=== PATIENT | female | born 2005 | race Caucasian/White ===

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

== ENCOUNTER → 2025-04-22 | Outpatient (CLI) | payer OTHER, SELFPAY ==
--- OUTSIDE RECORDS SUMMARY | 2025-04-22 14:55 | XMS RPT_ITS | CCD ---
Author Organization [facility] Care Team Providers Care Bus Matron Name Role Phone Osiris Raymond MD Primary Care Provider OSIRIS RAYMOND Primary Care Unavailable OSIRIS RAYMOND Attending Unavailable OSIRIS RAYMOND Primary Care Unavailable Cathy Mcrae Attending Unavailable Osiris Raymond Referring Unavailable Osiris Raymond Primary Care Unavailable Medications Current Medications Medication Drug Class(es) Dates Sig (Normalized) Sig (Original) cyclobenzaprine hydrochloride 10 mg oral tablet (4 sources) Muscle Relaxant Start: 08-29-2021 End: 09-03-2021 take 1 tablet by mouth twice daily cyclobenzaprine (FLEXERIL) 10 mg tablet Take 1 tablet by mouth twice daily for 5 days. 10 tablet 0 08/29/2021 09/03/2021 Active Start: 08-22-2021 End: 08-27-2021 take 1 tablet by mouth twice daily cyclobenzaprine (FLEXERIL) 5 mg tablet Take 1 tablet by mouth twice daily for 5 days. 10 tablet 0 08/22/2021 08/27/2021 Active Comment on above: Take 1 tablet by sean th twice daily for 5 days. Completed/Discontinued Medications Medication Drug Class(es) Dates Sig (Normalized) Sig (Original) drospirenone / Ethinyl Estradiol (11 sources) Progestin, Estrogen Start: 12-15-2020 VESTURA, 28, 3-0.02 mg per tablet naproxen 25 mg/ml oral suspension (3 sources) Nonsteroidal Anti-inflammatory Drug Start: 08-22-2021 End: 09-05-2021 take 20 mL by mouth twice daily naproxen (NAPROSYN) 125 mg/5 mL suspension Take 20 mL by mouth twice daily for 14 days. 560 mL 0 08/22/2021 08/29/2021 Discontinued Comment on above: Take 20 mL by mouth twice daily for 14 days. Problems Active Problems Problem Classification Problem Date Documented Da te Episodic/Chronic Blindness and vision defects (1 source) Eye / vision finding; Translations: [Unspecified visual disturbance] Episodic Other screening for suspected conditions (not mental disorders or infectious disease) (1 source) Patient encounter status; Translations: [Encounter for screening for diabetes mellitus] Episodic Spondylosis; intervertebral disc disorders; other back problems (14 sources) Chronic pain; Translations: [Cervicalgia] Onset: 09-03-2021 Episodic Past or Other Problems Problem Classification Problem Date Documented Da te Episodic/Chronic Other non-traumatic joint disorders (11 sources) Patellar instability; 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 Subjective Dipak Durand is a 17 year old female. HPI Presents with left eye redness watering and itchiness over the past 2 days. She had slept with her contacts the night before symptoms started. She got the contact out but her eyes been bothering her since. She also has glasses but did not wear them today. She was unable to do the eye exam due to not having her glasses. No cough or cold symptoms. No fever. No ear pain. No trouble seeing. Denies any thick drainage or crusting. Review of Systems Constitutional: Negative. HENT: Negative. Eyes: Positive for photophobia, pain, discharge, redness and itching. Negative for visual disturbance. Respiratory: Negative. Cardiovascular: Negative. Gastrointestinal: Negative. Genitourinary: Negative. Musculoskeletal: Negative. All other systems reviewed and are negative. PAST MEDICAL HISTORY Diagnosis Date Buckle fracture of ulna, right 09/2014 Childhood overweight, BMI 85-94.9 percentile 04/07/2015 PMH - PAST MEDICAL HISTORY OF 12/26/09 Normal Color Vision Current Outpatient Medications Medication Sig Dispense Refill VESTURA, 28, 3-0.02 mg per tablet ofloxacin (OCUFLOX) 0.3 % ophthalmic solution Use 2 Drops in the left eye every 4 hours for 7 days. 5 mL 0 No current facility-administered medications for this visit. PAST SURGICAL HISTORY Procedure Laterality Date NONE FAMILY HISTORY Problem Relation Age of Onset Cancer Paternal Grandfather tumor on back other (gastro) Maternal Grandfather Hypertension Maternal Grandmother other (murmur) Maternal Aunt dx as child Social History Tobacco Use Smoking status: Never Smokeless tobacco: Never Objective BP 96/60 Pulse 80 Temp 36.9 ?C (98.4 ?F) Resp 18 Wt 64.4 kg (142 lb) LMP 03/31/2023 (Approximate) SpO2 98% Physical Exam Vitals reviewed. Constitutional: Appearance: Normal appearance. HENT: Head: Normocephalic and atraumatic. Nose: Nose normal. Mouth/Throat: Mouth: Mucous membranes are moist. Pharynx: Oropharynx is clear. Eyes: General: Lids are normal. Extraocular Movements: Extraocular movements intact. Comments: Patient has some erythema of the conjunctive of the left eye with injection of the sclera. Some tearing noted. She is PERRLA and EOMI. No sign of orbital or periorbital cellulitis. After fluorescein and tetracaine, no sign of foreign body or abrasion on exam. Skin: General: Skin is warm and dry. Findings: No rash. Neurological: Mental Status: She is alert. Assessment and Plan ASSESSMENT/PLAN: 1. Acute conjunctivitis of left eye, unspecified acute conjunctivitis type - ICD9: 372.00, ICD10: H10.32 - see medication orders - course and contagiousness issues discussed, including hand washing. - Instructed to follow up with pcp if not better in 1-2 days RAUL Sadler-C Allergies As of Date: 05/08/2023 (No Known Allergies) Date Reviewed: 05/08/2023 Reviewed by: Harriett Sullivan LPN - Fully Assessed Reason for Visit: Eye Problem [43] Cmt: Left eye red, watering, itchy, fell asleep with contact in and woke up with it, x 2 days Primary Visit Diagnosis:Acute conjunctivitis of left eye, unspecified acute conjunctivitis type [H10.32] Order(s):ofloxacin (OCUFLOX) 0.3 % ophthalmic solutionUse 2 Drops in the left eye every 4 hours for 7 days.Disp: 5 mLRfl: 0 Prescriptions as of 05/08/2023 - ofloxacin (OCUFLOX) 0.3 % ophthalmic solution Use 2 Drops in the left eye every 4 hours for 7 days. 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 Letter Text Encounter Status:Closed by ARIELA HERNANDEZ on 05/08/23 [facility] CNOVon 05-28-2022 CNOV Office Visit (PEDSWS ) DIPAK DURAND ([id number]) 3 F Date Time Provider Department 05/28/22 8:00 AM OSIRIS RAYMOND [facility] During your visit today, we recorded the following information about you: Temperature Pulse Respiration Blood pressure 97.3 degrees 84/minute 18/minute 102/60 Weight Last Period 75.5 kg 05/14/22 Osiris Raymond MD 05/28/2022 9:02 AM Signed Chief complaint - seen the eye doctor on Friday (Vision improved a great deal, the eye doctor was concerned about diabetes) SUBJECTIVE: Dipak Durand 16 year old FEMALE accompanied by father for evaluation of concern about diabetes. Patient was seen for routine eye exam by Dr. Elliot Rico a couple of weeks ago. She had a dilated eye exam at that time. She had significant improvement in her vision and he mentioned a concern that she could have diabetes because of this improvement. Patient denies weight loss, abdominal pain, polyuria polydipsia or polyphagia. Denies all other review of symptoms. No other visual changes, no blurry vision, no eye pain. No family history of diabetes. OBJECTIVE: BP 102/60 Pulse 84 Temp 36.3 ?C (97.3 ?F) (Temporal) Resp 18 Wt 75.5 kg (166 lb 6 oz) LMP 05/14/2022 General: alert and active in no apparent distress Eyes: conjunctiva clear, PERRL, EOMI Lungs: clear to auscultation bilaterally, good air exchange, no retractions CVS: Normal rate, regular rhythm, no murmur Skin: No rashes, lesions or skin changes ASSESSMENT/PLAN: ASSESSMENT/PLAN: 1. Change in vision - ICD9: 368.9, ICD10: H53.9 (primary diagnosis) Follow-up with eye doctor as needed. Follow-up with me at 17-year well-child check. 2. Screening for diabetes mellitus - ICD9: V77.1, ICD10: Z13.1 - URINE OB DIP B/O Urine dip is clear for glucose or ketones. Some blood in the dip but she is currently on menses. No evidence for diabetes at this time. Osiris Raymond MD Allergies As of Date: 05/28/2022 (No Known Allergies) Date Reviewed: 05/28/2022 Reviewed by: Violette Pena Ma - Fully Assessed Reason for Visit: seen the eye doctor on Friday [Other] Cmt: Vision improved a great deal, the eye doctor was concerned about diabetes Primary Visit Diagnosis:Change in vision [H53.9] Other Visit Diagnosis:Screening for diabetes mellitus [Z13.1] Order(s):URINE OB DIP B/O [2200026] Order #: [id number] UA DIP, URINE (POC) [[id number]] Order #: [id number]. 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 Follow-up and Disposition History for Encounter Date Provider Department Center 05/28/2022 [id number] RAYMOND [facility] Encounter Status:Closed by OSIRIS RYAMOND on 05/28/22 Normal [facility] UA DIP, URINE (POC)on 2022 BILIRUBIN UA (POCT) Negative Negative [facility] CLARITY UA (POCT) Slightly Cloudy Cl [facility] COLOR UA (POCT) Other [facility] GLUCOSE UA (POCT) Negative Negative mg/dL [facility] HEMOGLOBIN/BLOOD UA (POCT) Moderate Abnormal Negative [facility] KETONE UA (POCT) Negative Negative mg/dL [facility] LEUKOCYTES UA (POCT) Negative Negative [facility] NITRITE UA (POCT) Negative Negative [facility] PH UA (POCT) 6.0 4.5 - 8.0 [facility] Protein Ql (U) 30 mg/dL Abnormal Negative mg/dL [facility] SPECIFIC GRAVITY UA (POCT) 1.025 1.005 - 1.030 [facility] UROBILINOGEN UA (POCT) 0.2 E.U./dL Normal E.U./dL [facility] PROGRESSon 11-02-2018 Protein mass conc HNO ID: [id number] Author: Nini Cho) ANIBAL Begum Service: ? Author Type: Clinical Main Line Assembler Type: Progress Notes Filed: 11/02/2018 2:40 PM Note Text: NAME:Dipak Durand DATE: November 02, 2018 CCF#: [id number] Lower Extremity X-Ray(s): Knee, AP / Lat / Tunne / Merchant Bilateral and Wt. Bearing COMPLETED TECH ID SIGN: PABLO BURTON [facility] XR KNEE 4V AP/PA/LAT/MERCH B Gertrudis 11-02-2018 XR KNEE 4V AP/PA/LAT/MERCH NELA * * *Final Report* * * DATE OF EXAM: Nov 02 2018 2:39PM EMY [id number] - XR KNEE 4V AP/PA/LAT/MERCH NELA / PROCEDURE REASON: [id number] * * * * Physician Interpretation * * * * Knee radiographs HISTORY: 13 years old Clinical information: Pain BILATERAL KNEE PAIN TECHNIQUE: Images: XR KNEE 4V AP/PA/LAT/MERCH NELA Comparison: None. RESULT: Findings: LEFT KNEE: No acute fracture, dislocation, aggressive osseous lesion, or radiopaque foreign body identified. RIGHT KNEE: No acute fracture, dislocation, aggressive osseous lesion, or radiopaque foreign body identified. IMPRESSION: No acute osseous abnormality identified.. Rda: PSCB Transcribe Date/Time: Nov 02 2018 3:26P Dictated by : VICENTE PATINO MD This examination was interpreted and the report reviewed and electronically signed by: VICENTE PATINO MD on Nov 02 2018 3:27PM EST [id number] [facility] Vital Signs Date Time Vital Sign Value Performing Clinician Lucita castaneda 05-28-2022 08:01-0500 Body temperature 97.3 [degF] Osiris Raymond MD Work Phone: [facility] 05-28-2022 08:01-0500 Body weight 75.47 kg Osiris Raymond MD Work Phone: [facility] 05-28-2022 08:01-0500 Diastolic blood pressure 60 mm[Hg] Osiris Raymond MD Work Phone: [facility] 05-28-2022 08:01-0500 Heart rate 84 /min Osiris Raymond MD Work Phone: [facility] 05-28-2022 08:01-0500 Respiratory rate 18 /min Osiris Raymond MD Work Phone: [facility] 05-28-2022 08:01-0500 Systolic blood pressure 102 mm[Hg] Osiris Raymond MD Work Phone: [facility] 08-29-2021 19:22-0400 Body temperature 97.5 [degF] Osiris Raymond MD Work Phone: [facility] 08-29-2021 19:22-0400 Body weight 79.55 kg Osiris Raymond MD Work Phone: [facility] 08-29-2021 19:22-0400 Diastolic blood pressure 60 mm[Hg] Osiris Raymond MD Work Phone: [facility] 08-29-2021 19:22-0400 Heart rate 82 /min Osiris Raymond MD Work Phone: [facility] 08-29-2021 19:22-0400 Respiratory rate 16 /min Osiris Raymond MD Work Phone: [facility] 08-29-2021 19:22-0400 Systolic blood pressure 100 mm[Hg] Osiris Raymond MD Work Phone: [facility] Encounters Encounter Date Encounter Type Care Provider Facility Start: 05-12-2023 ambulatory Cathy Mcrae Facility :[facility] Start: 05-08-2023 End: 05-08-2023 ambulatory OSIRIS RAYMOND Facility:[facility] Start: 05-28-2022 End: 05-28-2022 ambulatory OSIRIS RAYMOND Facility:[facility] Start: 05-28-2022 End: 05-28-2022 Patient encounter procedure Osiris Raymond MD Work Phone: [facility] Comment on above: Change in vision (Pr imary Dx); Screening for diabetes mellitus Start: 10-08-2021 End: 10-08-2021 ambulatory Rossana Liz PT Work Phone: [facility] Comment on above: Chronic bilateral lo w back pain without sciatica (Primary Dx) Start: 10-01-2021 End: 10-01-2021 ambulatory Jannet Chacko KERFER MACHINE OPERATOR Work Phone: [facility] Comment on above: Chronic bilateral lo w back pain without sciatica (Primary Dx) Start: 09-26-2021 End: 09-26-2021 ambulatory Jannet Chacko KERFER MACHINE OPERATOR Work Phone: [facility] Comment on above: Chronic bilateral lo w back pain without sciatica (Primary Dx) Start: 09-20-2021 End: 09-20-2021 ambulatory Rossana Liz PT Work Phone: [facility] Comment on above: Chronic bilateral lo w back pain without sciatica (Primary Dx) Start: 09-18-2021 End: 09-18-2021 ambulatory Rossana Liz PT Work Phone: [facility] Comment on above: Chronic bilateral lo w back pain without sciatica (Primary Dx) Start: 09-12-2021 End: 09-12-2021 ambulatory Jannet Chacko KERFER MACHINE OPERATOR Work Phone: [facility] Comment on above: Chronic bilateral lo w back pain without sciatica (Primary Dx) Start: 09-03-2021 End: 09-03-2021 ambulatory Rossana Liz PT Work Phone: [facility] Comment on above: Chronic bilateral lo w back pain without sciatica (Primary Dx) Start: 08-29-2021 End: 08-29-2021 Patient encounter procedure Osiris Raymond MD Work Phone: [facility] Comment on above: Chronic neck and jagjit k pain (Primary Dx) Start: 08-24-2021 ambulatory Osiris Raymond MD Work Phone: [facility] Comment on above: Excused work absence request Start: 08-23-2021 ambulatory Osiris Raymond MD Work Phone: [facility] Comment on above: Another medication q uestion Procedures Date Procedure Procedure Detail Performing Clinician Start: 05-28-2022 Urnls dip stick/tabl et rgnt auto w/o microscopy Osiris Raymond MD Work Phone: Start: 01-17-2021 Adult depression screening assessment Osiris Raymond MD Work Phone: Plan of Treatment Date Care Activity Detail Author Start: 06-19-2026 Urine microalbumin profile DTAP,TDAP,TD (7 - Td or Tdap) [facility] Start: 01-24-2022 Influenza vaccination C [facility] Start: 01-17-2022 Adult depression screening assessment DEPRESSION SCREENING [facility] Start: 08-20-2021 COVID-19 VACCINE (4 - Booster for Pfizer series) COVID-19 VACCINE (4 - Booster for Pfizer series) [facility] Start: 10-28-2019 CHLAMYDIA SCREENING (<18) CHLAMYDIA SCREENING (<18) [facility] Start: 10-28-2019 GC (GONORRHEA) SCREE RYANNE (<18) GC (GONORRHEA) SCREENING (<18) [facility] Start: 2018 PEDS TO ADULT TRANSI TION ANNUAL ASSESSMENT PEDS TO ADULT TRANSITION ANNUAL ASSESSMENT [facility] Start: 2014 MENINGOCOCCAL B: Consider based on risk (1 of 2 - Risk Bexsero 2-dose series) MENINGOCOCCAL B: Consider based on risk (1 of 2 - Risk Bexsero 2-dose series) [facility] URINE OB DIP B/O URINE OB DIP B/ O Lab Routine Screening for diabetes mellitus Ordered: 05/28/2022 [facility] Work Phone: Comment on above: Ordered: 05/28/2022 [facility] Immunizations Immunization Date Immunization Notes Care Provider [facility] 08-22-2021 meningococcal polysaccharide (groups A, C, Y and W-135) diphtheria toxoid conjugate vaccine (MCV4P) Osiris Raymond MD Work Phone: [facility] 12-25-2017 Human Papillomavirus 9-valent vaccine Osiris Raymond MD Work Phone: [facility] 02-18-2017 Influenza, injectabl e, Madin Miranda Canine Kidney, preservative free, quadrivalent Osiris Raymond MD Work Phone: [facility] 06-19-2016 Human Papillomavirus 9-valent vaccine Osiris Raymond MD Work Phone: [facility] Work Phone: 06-19-2016 meningococcal polysaccharide (groups A, C, Y and W-135) diphtheria toxoid conjugate vaccine (MCV4P) Osiris Raymond MD Work Phone: [facility] Work Phone: 06-19-2016 tetanus toxoid, redu azam diphtheria toxoid, and acellular pertussis vaccine, adsorbed Osiris Raymond MD Work Phone: [facility] Work Phone: 04-07-2015 influenza, injectabl e, quadrivalent, preservative free Osiris Raymond MD Work Phone: [facility] 03-15-2014 influenza, live, intranasal, quadrivalent Osiris Raymond MD Work Phone: [facility] 03-12-2013 influenza virus vacc ine, live, attenuated, for intranasal use Osiris Raymond MD Work Phone: [facility] 03-03-2012 influenza virus vacc ine, live, attenuated, for intranasal use Osiris Raymond MD Work Phone: [facility] Work Phone: 12-26-2009 diphtheria, tetanus toxoids and acellular pertussis vaccine Osiris Raymond MD Work Phone: [facility] 12-26-2009 hepatitis A vaccine, unspecified formulation Osiris Raymond MD Work Phone: [facility] 12-26-2009 measles, mumps and rubella virus vaccine Osiris Raymond MD Work Phone: [facility] 12-26-2009 poliovirus vaccine, inactivated Osiris Raymond MD Work Phone: [facility] 12-26-2009 varicella virus vaccine Osiris Raymond MD Work Phone: [facility] 03-29-2009 novel Influenza-H1N1 -09, live virus for nasal administration Osiris Raymond MD Work Phone: [facility] 04-16-2008 influenza virus vacc ine, live, attenuated, for intranasal use Osiris Raymond MD Work Phone: [facility] Work Phone: 11-29-2006 hepatitis A vaccine, unspecified formulation Osiris Raymond MD Work Phone: [facility] 02-22-2006 diphtheria, tetanus toxoids and acellular pertussis vaccine Osiris Raymond MD Work Phone: [facility] Work Phone: 02-22-2006 haemophilus influenz ae type b vaccine, HbOC conjugate Osiris Raymond MD Work Phone: [facility] Work Phone: 11-30-2005 measles, mumps and rubella virus vaccine Osiris Raymond MD Work Phone: [facility] Work Phone: 11-30-2005 pneumococcal conjuga te vaccine, 7 valent Osiris Raymond MD Work Phone: [facility] Work Phone: 11-30-2005 varicella virus vaccine Osiris Raymond MD Work Phone: [facility] Work Phone: 05-01-2005 DTaP-hepatitis B and poliovirus vaccine Osiris Raymond MD Work Phone: [facility] Work Phone: 05-01-2005 haemophilus influenz ae type b vaccine, HbOC conjugate Osiris Raymond MD Work Phone: [facility] Work Phone: 05-01-2005 influenza virus vacc ine, unspecified formulation Osiris Raymond MD Work Phone: [facility] Work Phone: 05-01-2005 pneumococcal conjuga te vaccine, 7 valent Osiris Raymond MD Work Phone: [facility] Work Phone: 03-06-2005 DTaP-hepatitis B and poliovirus vaccine Osiris Raymond MD Work Phone: [facility] Work Phone: 03-06-2005 haemophilus influenz ae type b vaccine, HbOC conjugate Osiris Raymond MD Work Phone: [facility] Work Phone: 03-06-2005 pneumococcal conjuga te vaccine, 7 valent Osiris Raymond MD Work Phone: [facility] Work Phone: 2004 DTaP-hepatitis B and poliovirus vaccine Osiris Raymond MD Work Phone: [facility] Work Phone: 2004 haemophilus influenz ae type b vaccine, HbOC conjugate Osiris Raymond MD Work Phone: [facility] Work Phone: 2004 pneumococcal conjuga te vaccine, 7 valent Osiris Raymond MD Work Phone: [facility] Work Phone: 2004 hepatitis B vaccine, pediatric or pediatric/adolescent dosage Osiris Raymond MD Work Phone: [facility] Work Phone: Payers Date Payer Category Payer Self-pay 2020 Unknown [employer] P[employer] [id number] 2020-Present [phone] [address] [place] [address] PPO [id number] 2020 Unknown [employer] PPO [id number] 2020-Present [phone] [address] [place] [address] PPO [id number] 2020 Unknown [id number] Unknown [id number] Social History Date Type Detail Facility Start: 06-21-2011 Tobacco smoking stat [facility] Never smoked tobacco [facility] Start: 08-22-2021 End: 05-28-2022 Alcohol intake Not Asked [facility] Start: 01-16-2021 History SDOH Physica l Activity DPW 6 [facility] Start: 01-16-2021 History SDOH Financial 5 [facility] Start: 01-16-2021 History SDOH Food Worry 1 [facility] Start: 01-16-2021 History SDOH Transpo rt Med 2 [facility] Start: 2004 Sex Assigned At Not on file C [facility] Start: 08-12-2021 End: 09-03-2021 Exposure to SARS-CoV-2 (event) Not sure [facility] Start: 06-21-2011 Tobacco use and exposure Smokeless tobacco non-user [facility] Work Phone: Clinical Notes 04-07-2015 to 05-08-2023 Osiris Raymond MD - 05/28/2022 8:58 AM Nova Liz, PT - 10/09/2021 9:43 AM Ramy Liz, PT - 10/01/2021 4:31 PM EDTCarolann Ramos, PT - 09/26/2021 4:26 PM EDT Note Date & Type Note Facility 05-08-2023 Note HNO ID: [id number] Author: Ariela Hernandez PA-C Service: ? Author Type: Physician Crosscutter [employer]led [employer] Type: Progress Notes Filed: 05/08/2023 6:48 PM Note Text: This note was created using Proofpointriter. Subjective Dipak Durand is a 17 year old female. HPI Presents with left eye redness watering and itchiness over the past 2 days. She had slept with her contacts the night before symptoms started. She got the contact out but her eyes been bothering her since. She also has glasses but did not wear them today. She was unable to do the eye exam due to not having her glasses. No cough or cold symptoms. No fever. No ear pain. No trouble seeing. Denies any thick drainage or crusting. Review of Systems Constitutional: Negative. HENT: Negative. Eyes: Positive for photophobia, pain, discharge, redness and itching. Negative for visual disturbance. Respiratory: Negative. Cardiovascular: Negative. Gastrointestinal: Negative. Genitourinary: Negative. Musculoskeletal: Negative. All other systems reviewed and are negative. PAST MEDICAL HISTORY Diagnosis Date Buckle fracture of ulna, right 09/2014 Childhood overweight, BMI 85-94.9 percentile 04/07/2015 PMH - PAST MEDICAL HISTORY OF 12/26/09 Normal Color Vision Current Outpatient Medications Medication Sig Dispense Refill VESTURA, 28, 3-0.02 mg per tablet ofloxacin (OCUFLOX) 0.3 % ophthalmic solution Use 2 Drops in the left eye every 4 hours for 7 days. 5 mL 0 No current facility-administered medications for this visit. PAST SURGICAL HISTORY Procedure Laterality Date NONE FAMILY HISTORY Problem Relation Age of Onset Cancer Paternal Grandfather tumor on back other (gastro) Maternal Grandfather Hypertension Maternal Grandmother other (murmur) Maternal Aunt dx as child Social History Tobacco Use Smoking status: Never Smokeless tobacco: Never Objective BP 96/60 Pulse 80 Temp 36.9 ?C (98.4 ?F) Resp 18 Wt 64.4 kg (142 lb) LMP 03/31/2023 (Approximate) SpO2 98% Physical Exam Vitals reviewed. Constitutional: Appearance: Normal appearance. HENT: Head: Normocephalic and atraumatic. Nose: Nose normal. Mouth/Throat: Mouth: Mucous membranes are moist. Pharynx: Oropharynx is clear. Eyes: General: Lids are normal. Extraocular Movements: Extraocular movements intact. Comments: Patient has some erythema of the conjunctive of the left eye with injection of the sclera. Some tearing noted. She is PERRLA and EOMI. No sign of orbital or periorbital cellulitis. After fluorescein and tetracaine, no sign of foreign body or abrasion on exam. Skin: General: Skin is warm and dry. Findings: No rash. Neurological: Mental Status: She is alert. Assessment and Plan ASSESSMENT/PLAN: 1. Acute conjunctivitis of left eye, unspecified acute conjunctivitis type - ICD9: 372.00, ICD10: H10.32 - see medication orders - course and contagiousness issues discussed, including hand washing. - Instructed to follow up with pcp if not better in 1-2 days Ariela Hernandez PA-C [facility] 05-28-2022 Note HNO ID: [id number] Author: Osiris Raymond MD Service: ? Author Type: Physician Type: Progress Notes Filed: 05/28/2022 9:02 AM Note Text: Chief complaint - seen the eye doctor on Friday (Vision improved a great deal, the eye doctor was concerned about diabetes) SUBJECTIVE: Dipak Durand 16 year old FEMALE accompanied by father for evaluation of concern about diabetes. Patient was seen for routine eye exam by Dr. Elliot Rico a couple of weeks ago. She had a dilated eye exam at that time. She had significant improvement in her vision and he mentioned a concern that she could have diabetes because of this improvement. Patient denies weight loss, abdominal pain, polyuria polydipsia or polyphagia. Denies all other review of symptoms. No other visual changes, no blurry vision, no eye pain. No family history of diabetes. OBJECTIVE: BP 102/60 Pulse 84 Temp 36.3 ?C (97.3 ?F) (Temporal) Resp 18 Wt 75.5 kg (166 lb 6 oz) LMP 05/14/2022 General: alert and active in no apparent distress Eyes: conjunctiva clear, PERRL, EOMI Lungs: clear to auscultation bilaterally, good air exchange, no retractions CVS: Normal rate, regular rhythm, no murmur Skin: No rashes, lesions or skin changes ASSESSMENT/PLAN: ASSESSMENT/PLAN: 1. Change in vision - ICD9: 368.9, ICD10: H53.9 (primary diagnosis) Follow-up with eye doctor as needed. Follow-up with me at 17-year well-child check. 2. Screening for diabetes mellitus - ICD9: V77.1, ICD10: Z13.1 - URINE OB DIP B/O Urine dip is clear for glucose or ketones. Some blood in the dip but she is currently on menses. No evidence for diabetes at this time. Osiris Raymond MD [facility] 05-28-2022 History of Present illness Narrative Chief complaint - seen the eye doctor on Friday (Vision improved a great deal, the eye doctor was concerned about diabetes) SUBJECTIVE: Dipak Durand 16 year old FEMALE accompanied by father for evaluation of concern about diabetes. Patient was seen for routine eye exam by Dr. Elliot Rico a couple of weeks ago. She had a dilated eye exam at that time. She had significant improvement in her vision and he mentioned a concern that she could have diabetes because of this improvement. Patient denies weight loss, abdominal pain, polyuria polydipsia or polyphagia. Denies all other review of symptoms. No other visual changes, no blurry vision, no eye pain. No family history of diabetes. OBJECTIVE: BP 102/60 Pulse 84 Temp 36.3 C (97.3 F) (Temporal) Resp 18 Wt 75.5 kg (166 lb 6 oz) LMP 05/14/2022 General: alert and active in no apparent distress Eyes: conjunctiva clear, PERRL, EOMI Lungs: clear to auscultation bilaterally, good air exchange, no retractions CVS: Normal rate, regular rhythm, no murmur Skin: No rashes, lesions or skin changes ASSESSMENT/PLAN: ASSESSMENT/PLAN: 1. Change in vision - ICD9: 368.9, ICD10: H53.9 (primary diagnosis) Follow-up with eye doctor as needed. Follow-up with me at 17-year well-child check. 2. Screening for diabetes mellitus - ICD9: V77.1, ICD10: Z13.1 - URINE OB DIP B/O Urine dip is clear for glucose or ketones. Some blood in the dip but she is currently on menses. No evidence for diabetes at this time. Osiris Raymond MD documented in this encounter [facility] 10-09-2021 History of Present illness Narrative Episode Visit Count: 7 Therapist That Will Oversee The Plan Of Care: Rossana Liz PT Start of Care Date: 09/03/21 Onset Date: 09/03/20 Patient Identified by Name and Date of : Yes REHABILITATION AND SPORTS THERAPY PHYSICAL THERAPY DISCONTINUANCE OF CARE PLAN OF CARE UPDATE: Assessment: Dipak Durand is discontinued from Physical Therapy services due to goal achievement and maximal benefit.. Patient was seen for 7 visits from Start of Care Date: 09/03/21 to 10/09/2021 and treatment included: Therapeutic exercise, Neuromuscular re-education, Manual therapy, Self-long-term management, Patient/Family/Caregiver Education and Body mechanics training. Goals for Episode of Care: created on 09/03/21 through 10/15/21 updated 10/08/21 Independent in home exercises./ achieved Patient will decrease pain to 2/10 with functional activities to allow patient to improve running and lifting./ achieved Restore pain-free lumbar ROM to full extension without pain to allow for return to prior functional level / achieved Maintain proper sitting posture throughout session/ achieved Patient will be able to tolerate sports activities without increased symptoms. 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 States that she does not have pain. Is done playing in the [employer] now. Pt reports that she feels confident and comfortable to continue exs to continue to build strength. Pain: Pain Pain Level: 0 Pain Location: Scapula - Left;Neck - Left Post Treatment Pain Post Treatment Pain Level: 0 PROMIS Scales T-scores: mean of general population = 50. 5 points is clinically meaningfully difference Percentiles provide an indication of how the patient's score ranks in relation to the general population. Higher percentile rankings indicate better function/quality of life. 50th percentile is the average of the general population and indicates half of respondents had a worse score. T-scores: mean of general population = 50. 5 points is clinically meaningfully difference Percentiles provide an indication of how the patient's score ranks in relation to the general population. Higher percentile rankings indicate better function/quality of life. 50th percentile is the average of the general population and indicates half of respondents had a worse score. OBJECTIVE MEASURES WITH LEVEL OF FUNCTION: Posture / Alignment Posture: Good Cervical Spine ROM Cervical Retraction AROM (cm) : (WNL) Cervical Flexion AROM (degrees) : 45 Degrees Cervical Extension AROM (degrees) : 60 Degrees Cervical Side-Bend Right AROM (degrees): 45 Degrees Cervical Side-Bend Left AROM (degrees) : 45 Degrees Cervical Rotation Right AROM (degrees) : 85 Degrees Cervical Rotation Left AROM (degrees) : 80 Degrees UE and Cervical Strength Deep Neck Flexor Endurance: 20 Functional Strength Functional Strength: no limitations noted TREATMENT: Therapeutic Exercise: 1: Seated cervical retractions 2x12 2: Seated scapular retraction leading with elbows 2x12 3: isometric cervical extension 5 sec hold x8 B 5: supine serratus press up left 5# 2x12 6: Supine deep neck flexor strengthening 3 x 20 sec 7: prone head lifts towel roll under forehead, 20 sec hold x5 8: prone T B 2x10 with towel roll under forehead 9: prone Y B 2x10 head in neutral with towel roll under forehead 10: door flexion stretch left hold 1x15 12: green band extension shoulder 3x15 B 13: green band left shoulder IR 2x15 B 14: Doorway B scaption slides with lift off from door B UE 2x10 Skilled Intervention: Skilled judgment was provided in selection of appropriate interventions. Correct performance of therapeutic exercises was facilitated with verbal and visual cuing. Billing Therapeutic Exercise Treatment Minutes: 35 Total Treatment Time Minutes (timed/untimed): 35 Rossana Liz PT documented in this encounter [facility] 10-01-2021 History of Present illness Narrative Episode Visit Count: 6 Therapist That Will Oversee The Plan Of Care: Rossana Liz PT Start of Care Date: 09/03/21 Onset Date: 09/03/20 Patient Identified by Name and Date of : Yes REHABILITATION AND SPORTS THERAPY PHYSICAL THERAPY TREATMENT NOTE ASSESSMENT: Dipak Durand tolerated the session with expected muscle soreness. She demonstrated difficulty with slight increase pain left medial border of scapula after exercises and no pain following short session of fot tissue mobs.. The patient will continue to benefit from ongoing skilled physical therapy to progress toward set goals. PLAN FOR NEXT VISIT: Progress cervical and scapular strength. SUBJECTIVE: Patient Reason for Visit: Patient reports orchestra is the only thing that bothers her currently. She reports feeling very tense in left neck and scapula area. Pain: Pain Pain Level: 0 Pain Location: Scapula - Left;Neck - Left OBJECTIVE MEASURES WITH LEVEL OF FUNCTION: Rounded shoulder observed at times during seated exercises. TREATMENT: Therapeutic Exercise: 1: Seated cervical retractions 2x12 2: Seated scapular retraction leading with elbows 2x12 3: isometric cervical extension 5 sec hold x8 B 4: Supine cervical retractions 2x10 5: supine serratus press up left 5# 2x12 6: Supine deep neck flexor strengthening 3 x 20 sec 7: prone head lifts towel roll under forehead, 20 sec hold x5 8: prone T B 2x10 with towel roll under forehead 9: prone Y B 2x10 head in neutral with towel roll under forehead 10: door flexion stretch left hold 1x15 11: Quadruped alternate arm and leg lifts 1x12 12: green band extension shoulder 3x15 B 13: green band left shoulder IR 2x15 B 14: Doorway B scaption slides with lift off from door B UE 2x10 Skilled Intervention: Patient was educated in proper exercise technique and purpose for exercises. Skilled judgment was provided in selection of appropriate interventions. Correct performance of therapeutic exercises was facilitated with verbal and visual cuing. Manual Therapy: 1: Short session lacrossed ball mobs left medical border of scapula with push to toleranc x 3 minutes. Skilled Intervention: Manual skills to improve joint mobility, ROM, and decrease pain. Utilized anatomy knowledge of the therapist, and assessment of patient's response to intervention. Billing Therapeutic Exercise Treatment Minutes: 42 Manual TherapyTreatment Minutes: 3 Total Treatment Time Minutes (timed/untimed): 45 Jannet Chacko PTA/Rossana Liz PT documented in this encounter [facility] 09-26-2021 History of Present illness Narrative Episode Visit Count: 5 Therapist That Will Oversee The Plan Of Care: Rossana Liz PT Start of Care Date: 09/03/21 Onset Date: 09/03/20 Patient Identified by Name and Date of : Yes REHABILITATION AND SPORTS THERAPY PHYSICAL THERAPY TREATMENT NOTE ASSESSMENT: Dipak Durand tolerated the session with decreased pain. She demonstrated improvements in tolerance for exercises with no increase pain and good form.. The patient will continue to benefit from ongoing skilled physical therapy to progress toward set goals. PLAN FOR NEXT VISIT: Progress cervical and scapular strength. SUBJECTIVE: Patient Reason for Visit: Patient reports feeling better. Patient reports some tightness medial border of left scapula. Pain: Pain Pain Level: 4 Pain Location: Scapula - Left Description: Tightness Frequency: Intermittent Post Treatment Pain Post Treatment Pain Level: 3 Post Treatment Pain Location: Scapula - Left Post Treatment Symptoms: feels looser OBJECTIVE MEASURES WITH LEVEL OF FUNCTION: Improved upright seated posture. TREATMENT: Therapeutic Exercise: 1: Seated cervical retractions 2x12 2: Seated scapular retraction leading with elbows 2x12 3: isometric cervical extension 5 sec hold x5 B 4: Supine cervical retractions 2x10 5: supine serratus press up left 5# 2x12 6: Supine deep neck flexor strengthening 3 x 15 sec 7: prone head lifts hands under forehead, 20 sec hold x5 8: *prone T B 2x12 with towel roll under forehead 9: *prone Y B 2x12 head in neutral with towel roll under forehead 10: door flexion stretch left 2-3 second hold 2x10 11: Quadruped alternate arm and leg lifts 1x10 12: green band extension shoulder 2x15 13: green band left shoulder IR 2x15 14: Doorway B scaption slides with lift off from door B UE 1x10 Skilled Intervention: Patient was educated in proper exercise technique and purpose for exercises. Skilled judgment was provided in selection of appropriate interventions. Correct performance of therapeutic exercises was facilitated with verbal and visual cuing. Billing Therapeutic Exercise Treatment Minutes: 39 Total Treatment Time Minutes (timed/untimed): 39 MARY Spencer, PT documented in this encounter [facility] 09-20-2021 History of Present illness Narrative Episode Visit Count: 4 Therapist That Will Oversee The Plan Of Care: Rossana Liz PT Start of Care Date: 09/03/21 Onset Date: 09/03/20 Patient Identified by Name and Date of : Yes REHABILITATION AND SPORTS THERAPY PHYSICAL THERAPY TREATMENT NOTE ASSESSMENT: Dipak Durand tolerated the session with no issues. She demonstrated improvements in resolution of left S-I pain and improved scapular pain after session today. . The patient will continue to benefit from ongoing skilled physical therapy to progress toward set goals. PLAN FOR NEXT VISIT: add prone Y and T to home exs . Assess delayed response SUBJECTIVE: Patient Reason for Visit: Pt notes that pain in left S-i is gone. feels pretty good otherwise Pain: Pain Pain Level: 5 Pain Location: Scapula - Left Post Treatment Pain Post Treatment Pain Level: 4 Post Treatment Pain Location: Scapula - Left Post Treatment Symptoms: feels better OBJECTIVE MEASURES WITH LEVEL OF FUNCTION: Pt still challenged by neck and scapular strengthening. cues for form required TREATMENT: Therapeutic Exercise: 1: Seated cervical retraction 2x10 (cracking in left neck and medial border of scapula) 2: *Seated scapular retraction leading with elbows 1x10 (education to do 3-5 times throughout the day..) 3: supine serratus press up left 5# 2x10 4: ball circles on door left arm 4# CW and CCW 3x10 5: Green band ER with scapular retraction 2x12 6: *Supine deep neck flexor strengthening 3 x 15 sec 7: prone head lifts hands under forehead, 15 sec hold x5 8: isometric cervical extension 5 sec hold x5 B 9: hoist scapular retraction 2+4 2x10 10: door flexion stretch left 2x10 11: quadriped arm and leg lifts 1x15 with fatigue in left scapular and needed to stop 12: green band extension shoulder 2x10 13: green band left shoulder IR 2x10 14: prone Y B 2x10 head in neutral with towel roll under forehead 15: prone T B 2x10 Skilled Intervention: Patient was educated in proper exercise technique and purpose for exercises. Reviewed and educated patient on additions/changes for home exercise program . Skilled judgment was provided in selection of appropriate interventions. Provided written instruction for home exercise program to facilitate proper performance and compliance. Correct performance of therapeutic exercises was facilitated with verbal and visual cuing. Home Exercise Program Assigned: 1: green band extension shoulder 2x10 2: prone Y B 2x10 head in neutral with towel roll under forehead Billing Therapeutic Exercise Treatment Minutes: 38 Total Treatment Time Minutes (timed/untimed): 38 Rossana Liz PT documented in this encounter [facility] 09-19-2021 History of Present illness Narrative Episode Visit Count: 3 Therapist That Will Oversee The Plan Of Care: Rossana Liz PT Start of Care Date: 09/03/21 Onset Date: 09/03/20 Patient Identified by Name and Date of : Yes REHABILITATION AND SPORTS THERAPY PHYSICAL THERAPY TREATMENT NOTE ASSESSMENT: Dipak Durand tolerated the session with no issues. She demonstrated difficulty with onset of pain in left S-I yesterday. Mild improvement temporarily with muscle energy ex. Continues to have weakness of deep neck flexors . The patient will continue to benefit from ongoing skilled physical therapy to progress toward set goals. PLAN FOR NEXT VISIT: will continue to work on core, S-I, cervical. Add scapular strengthening SUBJECTIVE: Patient Reason for Visit: Pt notes that she has sharp stabbing pain in left low back . Whenever she gets up from sitting and walking. When her foot hits the ground it happens. This started last night. Just started hurting on its own.. Neck exs going good . (has been running every other day.) Pain: Pain Pain Level: 9 Pain Location: Low Back/Lumbar Spine - Left Additional Pain Information : Location 2 Pain Level 2: 6 Pain Location 2: Scapula - Left Post Treatment Pain Post Treatment Pain Level: No Change Post Treatment Pain Location: Low Back/Lumbar Spine - Left Post Treatment Pain Score 2: No Change Post Treatment Pain Location 2: Scapula - Left OBJECTIVE MEASURES WITH LEVEL OF FUNCTION: Spine Observations L Lumbar Spine Palpation Tenderness: PSIS (posterior superior iliac spine) Lumbar Spine AROM Lumbar Flexion: Moderate limitation;Increased pain Lumbar Extension: Minimal limitation;End range pain Lumbar R Side-Bend: Normal Lumbar L Side-Bend: Normal Special Tests - Hip and Spine Hip and Spine Special Tests: SI Tests Supine to Long Sit Test : left short to long Gait Gait Observation: slight decreased stance left TREATMENT: Therapeutic Exercise: 1: Seated cervical retraction 2x10 (cracking in left neck and medial border of scapula) 2: *Seated scapular retraction leading with elbows 2x10 (education to do 3-5 times throughout the day..) 3: supine serratus press up left 3# 2x10 4: ball circles on door left arm 4# CW and CCW 3x10 5: Green band scapular retraction 2x12 6: *Supine deep neck flexor strengthening 3 x fatigue 7: prone head lifts hands under forehead, 15 sec hold x5 8: isometric cervical extension 5 sec hold x5 B 9: SKC B 2x10 10: isometric hip flexion left with increased hip flexion 2x3 for mm energy left S-I 11: quadriped arm and leg lifts 1x15 with fatigue in left scapular and needed to stop Skilled Intervention: Patient was educated in proper exercise technique and purpose for exercises. Reviewed and educated patient on additions/changes for home exercise program . Skilled judgment was provided in selection of appropriate interventions. Correct performance of therapeutic exercises was facilitated with verbal and visual cuing. Home Exercise Program Assigned: 1: add isometric hip flexion 8 sec hold x3 left only Billing Therapeutic Exercise Treatment Minutes: 45 Total Treatment Time Minutes (timed/untimed): 45 Rossana Liz PT documented in this encounter [facility] 09-12-2021 History of Present illness Narrative Episode Visit Count: 2 Therapist That Will Oversee The Plan Of Care: Rossana Liz PT Start of Care Date: 09/03/21 Onset Date: 09/03/20 Patient Identified by Name and Date of : Yes REHABILITATION AND SPORTS THERAPY PHYSICAL THERAPY TREATMENT NOTE ASSESSMENT: Dipak Durand tolerated the session with one episode of feeling lighted with standing with head against wall with lateral flexion right and left. She sat down and drank water and felt better after a few minutes.. She demonstrated difficulty with isometric lateral flexion with increase pain and she was instructed to stop this at home.. She had intermittent popping in neck throughout treatment. The patient will continue to benefit from ongoing skilled physical therapy to progress toward set goals. PLAN FOR NEXT VISIT: progress strengthening per patient tolerance SUBJECTIVE: Patient Reason for Visit: Patient reports still with pain left medial border of scapula. She reports the cervical retraction seems to help the most. Pain: Pain Pain Level: 6 Pain Location: Scapula - Left (medial border) Description: Sharp Frequency: Intermittent Post Treatment Pain Post Treatment Pain Level: No Change Post Treatment Symptoms: shoulder blade area feels worked out in a good way. OBJECTIVE MEASURES WITH LEVEL OF FUNCTION: Difficulty with isometric lateral flexion with increase pain and she was instructed to stop this at home.. TREATMENT: Therapeutic Exercise: 1: Seated cervical retraction 2x10 (cracking in left neck and medial border of scapula) 2: *Seated scapular retraction leading with elbows 2x10 (education to do 3-5 times throughout the day..) 3: Standing with ball behind head cervical retraction 3-5 second hold 2x10 4: Standing with ball behind head lateral flexion and rotations x [address] (patient reported feeling light headed and sat down and drank some water and felt better after a few minutes) 5: Lower trap strengthening with B hands on wall sliding up in scaption position with lift of hands back off wall and return to wall and slide back down 2x10 reps 6: *Supine deep neck flexor strengthening 5 x fatigue 7: prone head lifts hands under forehead, 10 sec hold x7 8: isometric cervical extension 5 sec hold x5 B 9: isometric LF cerivcal light pressure and cues for proper head position 5 sec hold x5 B (increase sharp pain right medial border of scapula and patient was educated to stop this at current time..) 10: Green band scapular retraction 2x12 Skilled Intervention: Patient was educated in proper exercise technique and purpose for exercises. Reviewed and educated patient on additions/changes for home exercise program as above (*). Skilled judgment was provided in selection of appropriate interventions. Provided written instruction for home exercise program to facilitate proper performance and compliance. Correct performance of therapeutic exercises was facilitated with verbal and visual cuing. Patient education as noted. Manual Therapy: 1: Soft tissue mobs distal scalenes push to tolerance x 2 minutes. Skilled Intervention: Manual skills to improve joint mobility, ROM, and decrease pain. Utilized anatomy knowledge of the therapist, and assessment of patient's response to intervention. Billing Therapeutic Exercise Treatment Minutes: 40 Manual TherapyTreatment Minutes: 2 Total Treatment Time Minutes (timed/untimed): 42 Jannet Chacko PTA/Rossana Liz PT documented in this encounter [facility] 09-03-2021 History of Present illness Narrative Episode Visit Count: 1 Therapist That Will Oversee The Plan Of Care: Rossana Liz PT Start of Care Date: 09/03/21 Onset Date: 09/03/20 Patient Identified by Name and Date of : Yes REHABILITATION AND SPORTS THERAPY PHYSICAL THERAPY EVALUATION PLAN OF CARE: Assessment: Dipak Durand presents with diagnosis of neck and back pain that interferes with lifting;physical activities . She presents with impairments in independence in exercise, strength and postural awareness . . Prognosis for therapy is Good due to: current objective clinical presentation . She will benefit from skilled therapy services to meet the goals established for this plan of care as noted below. Goals for Episode of Care: created on 09/03/21 through 10/15/21 Independent in home exercises. Patient will decrease pain to 2/10 with functional activities to allow patient to improve running and lifting. Restore pain-free lumbar ROM to full extension without pain to allow for return to prior functional level Maintain proper sitting posture throughout session Patient will be able to tolerate sports activities without increased symptoms. Knowledgeable regarding prophylaxis. Patient will increase strength of cervical region and DNF to 5/5 to allow for decreased pain . Knowledgeable RE: prophylaxis. Patient Goals: not hurt. Planned Interventions, Frequency, and Duration: Current Frequency: 2x/week Duration: 4 weeks Total Number of Visits Planned: 8 Planned Treatment Interventions: Therapeutic exercise (46564);Neuromuscular re-education (44443);Manual therapy (31907);Self-long-term management (01951);Patient/Family/Caregiver Education;Body Mechanics Training PLAN FOR NEXT VISIT: Will use ball on wall behind head to maintain cervical retraction with LF and roations., Add scapular retraction exs. .Review homeprogram. Patient demonstrates good understanding of plan of care and treatment. The above goals and plan of care were discussed and agreed upon by patient/family. SUBJECTIVE: Dipak Durand is a 15 year old female seen today for Pain along left scapular area that hurts with deep breath. neck pops alot, Pain along both sides of low back which is a soreness. Patient Goals: not hurt. Functional Limitations: lifting;physical activities Prior Level of Function: Independent without limitations Relevant History Preferred Language: Chinese Employment: Student Recreation / Current Exercise: (soccer in fall) Home Environment Patient Lives With: Family Intake Information: Prescription present Previous Treatment: Massage ;Muscle relaxer (rest) Spine History Symptoms Location at Onset: Neck;Back Symptoms Since Onset: Unchanging Pain is Worse Always: (with neck stretch) Pain is Better Always: Lying Sleeping Position: Side lying right;Prone - head left Sleep Affected by Pain: Not affected by pain Pain: Pain Pain Level: 5 Pain Location: Neck - Left (no pain in low back today) Description: Sharp Frequency: Intermittent Post Treatment Pain Post Treatment Pain Level: No Change Post Treatment Pain Location: Neck - Left;Scapula - Left Post Treatment Pain Description: Sharp PROMIS Scales T-scores: mean of general population = 50. 5 points is clinically meaningfully difference Percentiles provide an indication of how the patient's score ranks in relation to the general population. Higher percentile rankings indicate better function/quality of life. 50th percentile is the average of the general population and indicates half of respondents had a worse score. T-scores: mean of general population = 50. 5 points is clinically meaningfully difference Percentiles provide an indication of how the patient's score ranks in relation to the general population. Higher percentile rankings indicate better function/quality of life. 50th percentile is the average of the general population and indicates half of respondents had a worse score. OBJECTIVE MEASURES WITH LEVEL OF FUNCTION: Posture / Alignment Posture: Forward head;Rounded shoulders;Decreased lumbar lordosis Sitting Posture: Fair Spine Observations L Cervical Spine Palpation Tenderness: Upper trapezius;Levator scapulae R Lumbar Spine Palpation Tenderness: No tenderness noted L Lumbar Spine Palpation Tenderness: No tenderness noted Lumbar Spine AROM Lumbar Flexion: Normal Lumbar Extension: Minimal limitation;Increased pain Lumbar R Side-Bend: Minimal limitation;Increased pain Lumbar L Side-Bend: Minimal limitation;Increased pain Cervical Spine ROM Cervical ROM : Measurement AROM Cervical Retraction AROM (cm) : (WNL) Cervical Flexion AROM (degrees) : 55 Degrees Cervical Extension AROM (degrees) : 75 Degrees Cervical Side-Bend Right AROM (degrees): 60 Degrees Cervical Side-Bend Left AROM (degrees) : 60 Degrees Cervical Rotation Right AROM (degrees) : 90 Degrees Cervical Rotation Left AROM (degrees) : 75 Degrees UE and Cervical Strength Strength Tested: Myotome Cervical/Shoulder;Cervical Deep Neck Flexor Endurance: 8 (difficulty with form and pain noted) R Shoulder Internal Rotation: 5/5 R Shoulder External Rotation: 5/5 R Elbow Extension (C7): 5/5 R Elbow Flexion (C6): 5/5 R Wrist Extension: 5/5 L Shoulder Internal Rotation: 5/5 L Shoulder External Rotation: 5/5 L Elbow Extension (C7): 5/5 L Elbow Flexion (C6): 5/5 L Wrist Extension: 5/5 LE Strength Trunk Strength: 4+/5 R LE Strength: 5/5 L LE Strength: 5/5 Functional Strength Functional Strength: no limitations noted Gait Gait Observation: no deviations Education: Education Learning Preferences: Demonstration;Explanation;Perform ance;Printed Materials Barriers: None Learning/educational needs: Home exercise program;Plan of Care Education Provided: Yes, see treatment interventions for education provided Education Provided To: Patient TREATMENT: PT Treatment Interventions: Therapeutic Exercise Evaluation Therapeutic Exercise: 1: prone head lifts hands under forehead, 10 sec hold x5 2: isometric cervical extension 5 sec hold x3 B 3: isometric LF cerivcal light pressure and cues for proper head position 5 sec hold x5 B 4: cerivcal retraction 1x10 with finger on chin 5: instruction for pt to discontinue moving neck into end ranges and producing popping . 6: spoke to mother regarding treatment plan with agreement to plan Skilled Intervention: Patient was educated in proper exercise technique and purpose for exercises. Skilled judgment was provided in selection of appropriate interventions. Provided written instruction for home exercise program to facilitate proper performance and compliance. Correct performance of therapeutic exercises was facilitated with verbal and visual cuing. Education regarding posture correction Educated patient on rationale for performing exercises in regards to ROM and function . Patient education as noted. Home Exercise Program Assigned: 1: as outlined above Billing * Evaluation Low Complexity: 1 Unit Therapeutic Exercise Treatment Minutes: 25 Total Treatment Time Minutes (timed/untimed): 45 Rossana Liz PT documented in this encounter [facility] 09-03-2021 History of Past i llness Narrative Problem Noted Date Resolved Date Chronic bilateral low back pain without sciatica 09/03/2021 10/09/2021 Childhood overweight, BMI 85-94.9 percentile 12/17/2018 documented as of this encounter (statuses as of 10/09/2021) [facility] History of Past illness Narrative* Problem Noted Date Resolved Date Chronic bilateral low back pain without sciatica 09/03/2021 10/09/2021 Childhood overweight, BMI 85-94.9 percentile 12/17/2018 documented as of this encounter (statuses as of 05/30/2022) [facility]-08[facility]2022 History of Present illness Narrative* Osiris Raymond MD - 08/31/2021 9:24 AM EDT Chief complaint--f-up muscle spasm (rested for a wk, no relief, took all the medication ,and it didn't help much,scheduled with PT on 09/03 ) [id number]-1-[id number]-old here for follow-up of low back pain, shoulder pain and muscle spasms. Patient was seen last week. Please see history below. Patient did complete rest from exercise and lifting, Flexeril, Aleve and had minimal improvement. She has an appointment scheduled for physical therapy on Friday. She feels dad is still pushing her to start exercising again. From last weeks visit Dipak Durand is a 15 year old female with a history of onset 1 years ago. She has pain tightness and muscle spasms across her upper back and shoulder blades and sometimes inher lower back. She is exercising vigorously 6 out of 7 days a week including running, [employer] and weight lifting. She is also working at [employer] and carrying a full load at school. She is trying toget ready for soccer season. It sounds like her father is pushing her to participate and exercise. She had a massage therapist work on her couple of times and they said she had spasms in the upper part of her back. Intensity: varies Injury: No known mVA or trauma Blunt Force Injury: No Numbness: No Tingling: No Spasms: Yes Tightening: Yes Knots: Yes Dysuria: No Gross Hematuria: No Incontinence: No Radiation: No PMH- has a past medical history of Buckle fracture of ulna, right (09/2014), Childhood overweight, BMI 85-94.9 percentile (04/07/2015), and PMH - PAST MEDICAL HISTORY OF (12/26/09). ALLERGIES No Known Allergies REVIEW OF SYSTEMS: GENERAL: Negative for fevers, Negative for weight loss and malaise HEENT: Negative for congestion or rhinorrhea. RESPIRATORY: Negative for cough, wheezing or respiratory distress GI: Negative for vomiting or diarrhea. SKIN: Negative for lesions, rash, and itching. MUSCULOSKELETAL: Neck and shoulder pain, low back pain, OBJECTIVE: BP 100/60 Pulse 82 Temp 36.4 C (97.5 F) (Temporal) Resp 16 Wt 79.5 kg (175 lb 6 oz) LMP 01/17/2021 General: alert and active in no apparent distress Spine- Tenderness over lower cervical and upper thoracic vertebrae. Tenderness over paraspinal muscles in cervical upper thoracic and lumbar area. Limited motion with flexion extension of the back. due to discomfort IMP: Chronic neck and back pain (primary encounter diagnosis) PLAN We will increase Flexeril dosing to 10 mg twice a day for the next 5 days. Continue Aleve. Prolonged discussion regarding posture, prone sleeping and possibility of text neck. Will send a message to PT before appointment on Friday. 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 Letter for additional activities to be limited also written. She is on spring break next week. Osiris Raymond MD I spent a total of 30 minutes on the date of the service which included preparing to see the patient, [id number] patient care, completing clinical documentation, obtaining and/or reviewing separately obtained history, performing a medically appropriate examination, counseling and educating the pat ient/family/caregiver, communicating with other HCPs (not separately reported) and care coordination (not separately reported). [facility] Miscellaneous Notes* Telephone Encounter - Melissa Rivera LPN - 08/25/2021 9:11 AM EDT Letter written. Fab Rivera LPN [facility] Miscellaneous Notes* Telephone Encounter - Marina Guerrero RN - 08/23/2021 11:19 AM EDT please advise [facility] History of Past illness Narrative* Problem Noted Date Resolved Date Childhood overweight, BMI 85-94.9 percentile 12/17/2018 documented as of this encounter (statuses as of 08/24/2021) [address]13-2015 History of Past illness Narrative* Problem Noted Date Resolved Date Childhood overweight, BMI 85-94.9 percentile 12/17/2018 documented as of this encounter (statuses as of 08/25/2021) [address]-2015 History of Past illness Narrative* Problem Noted Date Resolved Date Childhood overweight, BMI 85-94.9 percentile 12/17/2018 documented as of this encounter (statuses as of 08/31/2021) [address]2015 History of Past illness Narrative* Problem Noted Date Resolved Date Childhood overweight, BMI 85-94.9 percentile 12/17/2018 documented as of this encounter (statuses as of 09/03/2021) [address]2015 History of Past illness Narrative* Problem Noted Date Resolved Date Childhood overweight, BMI 85-94.9 percentile 12/17/2018 documented as of this encounter (statuses as of 09/13/2021) [address]2015 History of Past illness Narrative* Problem Noted Date Resolved Date Childhood overweight, BMI 85-94.9 percentile 12/17/2018 documented as of this encounter (statuses as of 09/19/2021) [address]2015 History of Past illness Narrative* Problem Noted Date Resolved Date Childhood overweight, BMI 85-94.9 percentile 12/17/2018 documented as of this encounter (statuses as of 09/20/2021) [address]2015 History of Past illness Narrative* Problem Noted Date Resolved Date Childhood overweight, BMI 85-94.9 percentile 12/17/2018 documented as of this encounter (statuses as of 09/26/2021) [address]2015 History of Past illness Narrative* Problem Noted Date Resolved Date Childhood overweight, BMI 85-94.9 percentile 12/17/2018 documented as of this encounter (statuses as of 10/01/2021) [facility] Diagnosis Chronic neck and back pain- Primary [facility] Diagnosis Chronic bilateral low back pain without sciatica- Primary [facility] Diagnosis Chronic bilateral low back pain without sciatica- Primary [facility] Diagnosis Chronic bilateral low back pain without sciatica- Primary documented in this encounter [facility] Diagnosis Chronic bilateral low back pain without sciatica- Primary [facility] Diagnosis Chronic bilateral low back pain without sciatica- Primary [facility] Diagnosis Chronic bilateral low back pain without sciatica- Primary [facility] Diagnosis Chronic bilateral low back pain without sciatica- Primary [facility] Diagnosis Change in vision- Primary Unspecified visual disturbance Screening for diabetes mellitus documented in this encounter [facility] Purpose Family History No Family History Records FoundNo Family History Records FoundNo Family History Records Found Advance Directives No Advanced Directives Records FoundNo Advanced Directives Records FoundNo Advanced Directives Records Found Reason for Referral Specialty Diagnoses / Procedures Referred By Contac t Referred To Contact [facility] Diagnoses Chronic bilateral low back pain without sciatica Procedures PT REHAB FOLLOW UP ORDER THERAPEUTIC EXERCISES RE, EA 15 MIN. Pt [facility] [address] [place] [address] [facility] [address] [place] [address] Referral ID Status Reason Start Date Expiration Date Visits Requested Visits Authorized [id number] Pending Review PCP Requested Referral Auto-Generate d Referral 09/03/2021 12/02/2021 1 1 Additional Source Comments INFORMATION SOURCE (unrecogn ized section and content) DATE CREATED AUTHOR 11/02/2018 [facility] DATE CREATED AUTHOR AUTHOR'S ORGANIZ ATION 05/11/2023 [facility] DATE CREATED AUTHOR AUTHOR'S ORGANIZ ATION 05/12/2023 [facility] Source Comments (unrecognize d section and content) In the event this informatio n is protected by the Federal Confidentiality of Alcohol and Drug Abuse Patient Records regulations: The Federal rules restrict any use of the information to criminally investigate or prosecute any alcohol or drug abuse patient.[facility] the event this information is protected by the Federal Confidentiality of Alcohol and Drug Abuse Patient Records regulations: The Federal rules restrict any use of the information to criminally investigate or prosecute any alcohol or drug abuse patient.[facility] the event this information is protected by the Federal Confidentiality of Alcohol and Drug Abuse Patient Records regulations: The Federal rules restrict any use of the information to criminally investigate or prosecute any alcohol or drug abuse patient.[facility] the event this information is protected by the Federal Confidentiality of Alcohol and Drug Abuse Patient Records regulations: The Federal rules restrict any use of the information to criminally investigate or prosecute any alcohol or drug abuse patient.[facility] the event this information is protected by the Federal Confidentiality of Alcohol and Drug Abuse Patient Records regulations: The Federal rules restrict any use of the information to criminally investigate or prosecute any alcohol or drug abuse patient.[facility] Hospital[facility] the event this information is protected by the Federal Confidentiality of Alcohol and Drug Abuse Patient Records regulations: The Federal rules restrict any use of the information to criminally investigate or prosecute any alcohol or drug abuse patient.[facility] the event this information is protected by the Federal Confidentiality of Alcohol and Drug Abuse Patient Records regulations: The Federal rules restrict any use of the information to criminally investigate or prosecute any alcohol or drug abuse patient.[facility] the event this information is protected by the Federal Confidentiality of Alcohol and Drug Abuse Patient Records regulations: The Federal rules restrict any use of the information to criminally investigate or prosecute any alcohol or drug abuse patient.[facility] the event this information is protected by the Federal Confidentiality of Alcohol and Drug Abuse Patient Records regulations: The Federal rules restrict any use of the information to criminally investigate or prosecute any alcohol or drug abuse patient.[facility] the event this information is protected by the Federal Confidentiality of Alcohol and Drug Abuse Patient Records regulations: The Federal rules restrict any use of the information to criminally investigate or prosecute any alcohol or drug abuse patient.[facility] the event this information is protected by the Federal Confidentiality of Alcohol and Drug Abuse Patient Records regulations: The Federal rules restrict any use of the information to criminally investigate or prosecute any alcohol or drug abuse patient.[facility] Care Teams (unrecognized sec tion and content) Bus Matron Relationship Specialty Start Date End Date Osiris Raymond MD [address] [place] [id number] PCP - General 04 Bus Matron Relationship Specialty Start Date End Date Osiris Raymond MD [address] [place] [id number] PCP - General 04 Bus Matron Relationship Specialty Start Date End Date Osiris Raymond MD [address] [place] [address] [place] [address] PCP - General 04 Bus Matron Relationship Specialty Start Date End Date Osiris Raymond MD [address] [place] [address] [place] [address] PCP - General 04 Bus Matron Relationship Specialty Start Date End Date Osiris Raymond MD [address] [place] [id number] PCP - General 04 Bus Matron Relationship Specialty Start Date End Date Osiris Raymond MD [address] [place] [id number] PCP - General 04 Bus Matron Relationship Specialty Start Date End Date Osiris Raymond MD [address] [place], [place] [id number] PCP - General 04 Bus Matron Relationship Specialty Start Date End Date Osiris Raymond MD [address] [place], [place] [phone] PCP - General 04 Bus Matron Relationship Specialty Start Date End Date Osiris Raymond MD [address] [place], [place] [id number] PCP - General 04 Bus Matron Relationship Specialty [place] [address] [place] [address] [id number] PCP - General 04 Reason for Visit (unrecogniz ed section and content) Reason Comments PT Discharge Specialty Diagnoses / Procedures Referred By Contac t Referred To Contact [facility] Diagnoses Chronic bilateral low back pain without sciatica Procedures CONSULT TO PHYSICAL THERAPY PHYSICAL THERAPY EVALUATION HIGH COMPLEX 45 MINS THERAPEUTIC EXERCISES RE, EA 15 MIN. Osiris Raymond MD [address] [place] [id number] [facility] [address] [address] Referral ID Status Reason Start Date Expiration Date V isits Requested Visits Authorized [id number] Authorized 08/23/2021 05/25/2022 20 20 Reason Comments f-up muscle spasm rested for a wk, no relief, took all the medication ,and it didn't help much,scheduled with PT on 09/03 Reason Comments PT Eval Patient Education Specialty Diagnoses / Procedures Referred By Contac t Referred To Contact [facility] Diagnoses Chronic bilateral low back pain without sciatica Procedures CONSULT TO PHYSICAL THERAPY PHYSICAL THERAPY EVALUATION HIGH COMPLEX 45 MINS THERAPEUTIC EXERCISES RE, EA 15 MIN. Osiris Raymond MD [address] [place] [id number] [facility] [address] [place] [address] Reason Comments Physical Therapy Reason Comments seen the eye doctor on Friday Vision imp roved a great deal, the eye doctor was concerned about diabetes FOR RECORDS PERTAINING TO PATIENTS WHO ARE OR HAVE BEEN ENROLLED IN A CHEMICAL DEPENDENCY/SUBSTANCEABUSE PROGRAM, SOME INFORMATION MAY BE OMITTED. This clinical summary was aggregated from multiple sources. Caution should be exercised in using it in the provision of clinical care. This summary normalizes information from multiple sources, and as a consequence, information in this document may materially change the coding, format and clinical context of patient data. In addition, data may be omitted in some cases. CLINICAL DECISIONS SHOULD BE BASED ON THE PRIMARY CLINICAL RECORDS. [employer] provides no warranty or guarantee of the accuracy or completeness of information in this document.
== END | disposition home or self-care (01) ==
LOC: LABSPEC 14:52
PROVIDERS: PCP Pediatrics; Visit Provider Physician Assistant Surgical
DX: J02.9 Acute pharyngitis, unspecified (principal)
CPT/HCPCS: 87070